=== PATIENT | female | born 1970 | race Caucasian/White ===

== ENCOUNTER 2018-02-25 11:32 | Day surgery (SDC) | payer BC ==
[~2018-02-25 11:32] MED LIST: Lactated Ringers 1,000 ML IV SCH; Sodium Chloride 0.9% 10 ML Syringe FLUSH PRN; Sodium Chloride 0.9% 2.5 ML Syringe FLUSH PRN
--- NOTE | 2018-02-25 12:22 | PCM.PREANE ---
Preanesthetic Assessment - Anesthesia/Transfusion/Family Hx Anesthesia History: No Prior Anesthesia Family History of Anesthesia Reaction: No Transfusion History: No Prior Transfusion(s) Intubation History: Unknown - Review of Systems General: No Symptoms Pulmonary: No Symptoms Cardiovascular: No Symptoms Gastrointestinal: No Symptoms, Other (father had colon cancer) Neurological: No Symptoms Other: Reports: None - Physical Assessment Height: 1.57 m Weight: 65.771 kg ASA Class: 1 Mental Status: Alert & Oriented x3 Airway Class: Mallampati = 1 Dentition: Reports: Normal Dentition Thyro-Mental Finger Breadths: 3 Mouth Opening Finger Breadths: 3 ROM/Head Extension: Full Lungs: Clear to Auscultation, Normal Respiratory Effort Cardiovascular: Regular Rate, Regular Rhythm - Lab Values: Laboratory Last Values Urine HCG, Qual NEGATIVE (NEGATIVE) 02/25/18 12:05 - Allergies Allergies/Adverse Reactions: Allergies Allergy/AdvReac Type Severity Reaction Status Date / Time No Known Allergies Allergy Verified 02/22/18 14:57 - Blood Blood Available: No - Anesthesia Plan Pre-Op Medication Ordered: None - Acknowledgements Anesthesia Type Planned: MAC Pt an Appropriate Candidate for the Planned Anesthesia: Yes Alternatives and Risks of Anesthesia Discussed w Pt/Guardian: Yes Pt/Guardian Understands and Agrees with Anesthesia Plan: Yes PreAnesthesia Questionnaire HEENT History: Reports: Other (See Below) Other HEENT History: wears glasses Cardiovascular History: Reports: Other (See Below) Other Cardiovascular History: BP was elevated recently in the clinic- was told to stop BCP's- has not taken since 02/20/18 Endocrine/Metabolic History: Reports: Other (See Below) (enlarged thyroid glan) - SUBSTANCE USE Smoking Status *Q: Never Smoker Recreational Drug Use History: No - HOME MEDS Home Medications: Home Meds FA/Lycopene/Lut/MV,Ca,Iron,Min [Centrum] 1 tab PO DAILY 02/22/18 [History] Levonorgestrel-Ethin Estradiol [Myzilra-28 Tablet] 1 tab PO DAILY 02/22/18 [ History] - CURRENT (IN HOUSE) MEDS Current Meds: Current Medications Lactated Ringer's (Ringers, Lactated) 1,000 mls @ 125 mls/hr IV ASDIRECTED GREGORIO Sodium Chloride (Saline Flush) 10 ml FLUSH ASDIRECTED PRN PRN Reason: Keep Vein Open Sodium Chloride (Saline Flush) 2.5 ml FLUSH ASDIRECTED PRN PRN Reason: Keep Vein Open Sodium Chloride (Saline Flush) 10 ml FLUSH ASDIRECTED PRN PRN Reason: Keep Vein Open Sodium Chloride (Saline Flush) 2.5 ml FLUSH ASDIRECTED PRN PRN Reason: Keep Vein Open
[2018-02-25] MEDS ORDERED: fentaNYL 100 MCG/2 ML SDV ONE (12:25)
[2018-02-25] MEDS ORDERED: Lidocaine 2% 5 ML SDV ONE (12:25)
[2018-02-25] MEDS ORDERED: Midazolam 1 MG/ML 2 ML SDV ONE (12:25)
[2018-02-25] MEDS ORDERED: Propofol 200 MG/20 ML SDV ONE ×2 (12:25→13:00)
--- NOTE | 2018-02-25 13:16 | PCM.OPNOTE ---
- General Post-Op/Procedure Note Date of Surgery/Procedure: 02/25/18 Operative Procedure(s): Colonoscopy Findings: Sigmoid colon polyp Pre Op Diagnosis: Family history of colon cancer Post-Op Diagnosis: sigmoid colon polyp Anesthesia Technique: APPLE Primary Surgeon: Aniya Donnelly Condition: Good
--- NOTE | 2018-02-25 17:29 | OR ---
SURGEON: PHILLIP HERRERA MD DATE OF PROCEDURE: 02/25/2018 PREOPERATIVE DIAGNOSIS: Family history of colon cancer. POSTOPERATIVE DIAGNOSIS: Sigmoid colon polyp. PROCEDURE PERFORMED: Screening colonoscopy. ANESTHESIA: MAC. INSTRUMENT USED: Olympus colonoscope. EXTENT OF EXAM: To the cecum. PREPARATION: Good. LIMITATIONS: Tortuous colon. INDICATIONS: The patient is a 48-year-old female who presents for first time screening colonoscopy. Her father was diagnosed with colon cancer at the age of 59, and one of her older sisters has been found to have colon polyps. She is here today to undergo her first screening colonoscopy. We discussed the procedure; expected perioperative course; and the risks including bleeding, infection, or damage to the surrounding structures including perforation. The patient verbalized understanding and wishes to proceed. PROCEDURE IN DETAIL: The patient was brought to the endoscopy suite and placed in the left lateral decubitus position. A time-out was completed verifying the patient's name, age, date of , allergies, and the procedure to be performed. Monitored anesthesia care was induced, and continuous oxygen was provided via face mask throughout the procedure. After adequate sedation was achieved, a digital rectal exam was performed. This exam was within normal limits. A well- lubricated colonoscope was inserted into the rectum and advanced under direct visualization to the level of cecum. This was somewhat difficult due to tortuosity of her colon. The cecum was identified by both visual and anatomic landmarks. A photograph was taken of the cecal cap; however, I was unable to retroflex the scope within the cecum. The scope was then fully withdrawn while examining the color, texture, anatomy, and integrity of the mucosa from the cecum to the anal canal. The patient had a 1 to 2 mm sessile polyp within the distal sigmoid colon. This was removed using a cold biopsy forceps. The scope was then brought into the rectum and retroflexed to allow visualization of the anal canal opening. This appeared normal, and a photograph was taken. The scope was then straightened out and fully withdrawn. The [id number] time was 7 minutes. The patient tolerated the procedure well and was taken to PACU in stable condition. ENDOSCOPIC DIAGNOSIS: Sigmoid colon polyp. RECOMMENDATIONS: Follow up in clinic in 2 weeks. JOSHUA ENCARNACION /[id number]
== END 2018-02-25 14:10 | disposition home or self-care (01) ==
LOC: MW.SDS 11:32
PROVIDERS: ATTEND Surgery
DX: Z12.11 Encounter for screening for malignant neoplasm of colon (principal); E04.9 Nontoxic goiter, unspecified; H81.10 Benign paroxysmal vertigo, unspecified ear; K63.5 Polyp of colon; Z79.899 Other long term (current) drug therapy; Z83.71 Family history of colonic polyps; Z80.0 Family history of malignant neoplasm of digestive organs
CPT/HCPCS: 45380; 81025; J2250; J3010; J7120; J2704

== ENCOUNTER 2024-08-18 09:54 | Day surgery (SDC) | payer BC ==
[~2024-08-18 09:54] MED LIST changes: -Lactated Ringers 1,000 ML IV SCH; +Sodium Chloride 0.9% 20 ML SDV IV PRN
[2024-08-18] MEDS: Lactated Ringers 1,000 ML IV SCH (10:21)
[2024-08-18] MEDS ORDERED: Lidocaine 2% 5 ML SDV ONE (12:14)
[2024-08-18] MEDS ORDERED: propofoL 500 MG/50 ML 50 ML ONE (12:15)
== END 2024-08-18 13:42 | disposition home or self-care (01) ==
LOC: MW.SDS 09:54
PROVIDERS: ATTEND Surgery
DX: Z12.11 Encounter for screening for malignant neoplasm of colon (principal); Z86.0100 Personal history of colon polyps, unspecified; I10 Essential (primary) hypertension; Z79.899 Other long term (current) drug therapy
CPT/HCPCS: 45378; J2704; J7120; J3490

== ENCOUNTER 2024-10-16 12:09 | Emergency (ER) | payer BC | END 2024-10-16 13:27 | disposition home or self-care (01) | LOC: MW.ED 12:09 | DX: J02.9 Acute pharyngitis, unspecified (principal); R42 Dizziness and giddiness; I10 Essential (primary) hypertension; Z79.899 Other long term (current) drug therapy | CPT/HCPCS: 87428-QW; 87651-QW; 93005; 99285 ==